=== PATIENT | female | born 1980 | race Caucasian/White ===

== ENCOUNTER 2025-01-28 11:33 | Emergency (ER) | payer OTHER, SELFPAY ==
--- NOTE | ~2025-01-28 | XR_ITS ---
Examination: XR ankle LT min 3V Clinical History: pain and swelling from fall 8 days ago Comparison: None Technique: 4 views left ankle Findings/impression: 1. Minimally displaced fracture lateral malleolus, below level of ankle mortise. 2. No additional fracture noted. 3. Ankle mortise appears maintained. Reviewed, dictated and finalized at location R.
--- OUTSIDE RECORDS SUMMARY | 2025-01-28 11:39 | XMS_ITS | Encounter Summary ---
Author Organization [facility] Address [address] [place] [address] Phone Care Team Providers Care Bee Raiser Name Role Phone María Elena Mccormick MD Primary Care Provider [phone] Stefanie Boston PT Unavailable Unavailabl Joan Levi MD Unavailable Cathy Henderson MD Unavailable [phone] Encounter Details Date Type Department Care Team (Latest Contact Info) Description 06/17/2024 Orders Only [facility] Scanning, Provider Social History Tobacco Use Types Packs/Day Years Used Date Smoking Tobacco: Never Smokeless Tobacco: Never Alcohol Use Standard Drinks/Week Comments Yes 0 (1 standard drink = 0.6 oz pur e alcohol) AUDIT-C Answer Date Recorded Q1: How often do you have a drink containing alc ohol? Monthly or less 04/18/2024 Q2: How many drinks containi ng alcohol do you have on a typical day when you are drinking? 1 or 2 04/18/2024 Q3: How often do you have si x or more drinks on one occasion? 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 Not on file Not on file documented as of this encounter Plan of Treatment Upcoming Encounters Date Type Department Care Team (Late st Contact Info) Description 05/26/2025 8:00 AM [employer] Hospital Encounter [facility] [address] [place] [address] Bobby Lopez MD [address] [facility] [address] [place] [address] 05/26/2025 8:00 AM [employer] - 05/26/2025 8:30 AM [employer] Surgery [address] [address]Bobby Murphy MD [address] [place] [address] [address] [place] [address] COLONOSCOPY Scheduled Procedures Name Priority Associated Diagnoses Date/Ti me COLONOSCOPY Encounter for screening colonoscopy 05/26/2025 8:00 AM [employer] documented as of this encounter Procedures Procedure Name Priority Date/Time Associated Diagnosis Comments SCAN - LABS 06/17/2024 documented in this encounter Results * SCAN - LABS (06/17/2024) us Provider Scanning Edited Result - Final documented in this encounter Visit Diagnoses Not on filedocumented in this encounter Care Teams Bee Raiser Relationship Specialty Start Date End Date María [place] [id number] [facility] [address] [place] [address] PCP - General 11/09/15 Stefanie Boston, PT Physical Therapist Physical Therapy 10/30/23 Joan Bond MD [address] [facility] [address] [place] [address] Medical Oncologist/Hematologis t Hematology 08/25/24 Cathy Henderson MD [address] [place] [address] Delivery Recruiter Obstetrics and Gynecology 08/25/24 documented as of this encounter
--- OUTSIDE RECORDS SUMMARY | 2025-01-28 11:39 | XMS_ITS | Clinical Summary ---
Author Organization [facility] Address [address] [facility] [address] [place] [address] Phone Care Team Providers Care Ux Design Manager Name Role Phone María Elena Mccormick MD Primary Care Provider [phone] Stefanie Boston PT Unavailable Unavailabl Joan Levi MD Unavailable Alexandria Henderson MD Unavailable Allergies No known active allergies Medications cholecalciferol (VITAMIN D-3) 2000 unit capsuleIndication s:Family history of osteoporosis Take 1 capsule (2,000 Units total) by mouth daily 1 Active buPROPion SR (WELLBUTRIN SR) 150 mg 12 hr tabletIndications :Recurrent major depressive disorder, in full remission Take 1 tablet (150 mg total) by mouth daily 90 tablet 2 4 Active Active Problems Problem Noted Date Diagnosed Date Encounter for screening colonoscopy 09/05/2024 Immunization due 08/26/2024 Colon cancer screening 08/26/2024 Assessment & Plan (08/26/2024 5:01 PM CDT): Discussed screening options - Cologuard Kit of Colonoscopy. She would like to get the Colonoscopy. [facility] will be convenient for her. 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 She received phlebotomies to treat iron overload. Most recent office visit with Hematology 07/2024. Labs stable at that time. Will follow-up for repeat labs 11/04/2024 Chronic right shoulder pain 08/21/2023 Assessment & Plan (08/21/2023 1:51 PM CDT): Onset ~ Mar 2023/Apr 2023. Possibly started following ski trip. Exam consistent with rotator cuff tendonitis. Strength relatively intact, but tear is a possibility. Recommend stretching and strengthening. She would like to try home exercises rather than PT. Handout given. If pain persists, will recommend Orthopedist referral [email or web address] Recommend ice OR heat to affected area. 20 minutes at a time, 2-3 times a day. Plantar wart of right foot 08/21/2023 Assessment & Plan (08/21/2023 1:49 PM CDT): Plantar wart vs small callus Recommend OTC Compound W. Could consider Dermatology or Podiatry for cryotherapy [email or web address] Iron excess 08/07/2023 Assessment & Plan (12/12/2023 12:03 PM CDT): TIBC low on 03/13/2022 labs UIBC low on 03/13/2022 and 03/03/2019 labs Remainder of iron panel normal on prior labs 02/2023 - TIBC 232 (normal 250-450) UIBC 69 (normal 131-425) Iron 163 (normal 27-159) Iron saturation 70 (normal 15-55) 08/07/2023 - Cr 0.91, eGFR 80 Glucose 92 mg/dL K+ 5.0 (H) H/H 14.0/43.2 MCV 98.0 (H) Iron 144 (normal 35 - 145) Ferritin 339 (normal 15 - 150) TIBC 248 (normal 250 - 400) Transferrin Saturation 58 %(normal 20 - 50%) History of low blood count as an adolescent. History of heavy menses prior to NovaSure procedure 09/2015. No known family history of hereditary hemochromatosis. Normal liver function. No anemia. Was taking MVT prior to labs in February 2023, but has stopped. No significant EtOH intake. No family history of hemochromatosis. No symptoms of hemochromatosis. Assessment & Plan (11/26/2023 5:19 PM CDT): TIBC low on 03/13/2022 labs UIBC low on 03/13/2022 and 03/03/2019 labs Remainder of iron panel normal on prior labs 02/2023 - TIBC 232 (normal 250-450) UIBC 69 (normal 131-425) Iron 163 (normal 27-159) Iron saturation 70 (normal 15-55) 08/07/2023 - Cr 0.91, eGFR 80 Glucose 92 mg/dL K+ 5.0 (H) H/H 14.0/43.2 MCV 98.0 (H) Iron 144 (normal 35 - 145) Ferritin 339 (normal 15 - 150) TIBC 248 (normal 250 - 400) Transferrin Saturation 58 %(normal 20 - 50%) History of low blood count as an adolescent. History of heavy menses prior to NovaSure procedure 09/2015. No known family history of hereditary hemochromatosis. Normal liver function. No anemia. Was taking MVT prior to labs in February, but has stopped. No significant EtOH intake. No family history of hemochromatosis. No symptoms of hemochromatosis. Iron levels improved on recent labs, but not normal. Could consider referral to [facility] at this point for genetic testing and imaging - likely US or MRI of liver. Or repeat labs in 4 months for monitoring. Her recent ferritin level was high, but iron level was normal. So I do not think that phlebotomy would be indicated at this point. She was agreeable to repeat labs in November 2023. Will plan to do this at [facility]. Assessment & Plan (08/21/2023 1:56 PM CDT): TIBC low on 03/13/2022 labs UIBC low on 03/13/2022 and 03/03/2019 labs Remainder of iron panel normal on prior labs 02/2023 - TIBC 232 (normal 250-450) UIBC 69 (normal 131-425) Iron 163 (normal 27-159) Iron saturation 70 (normal 15-55) 08/07/2023 - Cr 0.91, eGFR 80 Glucose 92 mg/dL K+ 5.0 (H) H/H 14.0/43.2 MCV 98.0 (H) Iron 144 (normal 35 - 145) Ferritin 339 (normal 15 - 150) TIBC 248 (normal 250 - 400) Transferrin Saturation 58 %(normal 20 - 50%) History of low blood count as an adolescent. History of heavy menses prior to NovaSure procedure 09/2015. No known family history of hereditary hemochromatosis. Normal liver function. No anemia. Was taking MVT prior to labs in February, but has stopped. No significant EtOH intake. No family history of hemochromatosis. No symptoms of hemochromatosis. Iron levels improved on recent labs, but not normal. Could consider referral to [facility] at this point for genetic testing and imaging - likely US or MRI of liver. Or repeat labs in 4 months for monitoring. Her recent ferritin level was high, but iron level was normal. So I do not think that phlebotomy would be indicated at this point. She was agreeable to repeat labs in November 2023. Will plan to do this at [facility]. Assessment & Plan (08/07/2023 11:37 AM CDT): TIBC 232 (normal 250-450) UIBC 69 (normal 131-425) Iron 163 (normal 27-159) Iron saturation 70 (normal 15-55) TIBC low on 03/13/2022 labs UIBC low on 03/13/2022 and 03/03/2019 labs Remainder of iron panel normal on prior labs History of low blood count as an adolescent. History of heavy menses prior to NovaSure procedure 09/2015. No known family history of hereditary hemochromatosis. Normal liver function on Feb 2023 labs. No anemia. Was taking MVT prior to labs in February, but has stopped. Elevated levels possibly due to excess iron supplementation through MVT Discussed possibility of genetic disorder causing increased iron absorption. Risk of liver adverse effects if this is the etiology and left untreated. Recommend recheck with ferritin level Family history of osteoporosis 04/05/2021 Assessment & Plan (08/26/2024 4:54 PM CDT): 11/2023 - 25(OH) Vit D 46 (N) Patient risk factors for low bone density include family history. No s/s premature menopause Broke her arm as a child, but no high risk fractures. No high risk medications or personal medical diagnoses that would contribute Never smoker Most recent labs 2015 - CBC, BMP normal. Recommend resistance training, continue MVT and Vit D supplement Assessment & Plan (04/05/2021 4:56 PM RUBBER TIRE CURER): No s/s premature menopause No personal history of fracture No high risk medications or personal medical diagnoses that would contribute Never smoker Most recent labs 2015 - CBC, BMP normal. Recommend resistance training, continue MVT and Vit D supplement Consider Vit D testing with routine annual labs at Physical Exam Palpitations 02/16/2019 Assessment & Plan (02/16/2019 1:14 PM CDT): Chronic feelings of palpitations - intermittent Classically worse with laying on right side. Now more frequent. No identifiable trigger. No OTC meds Has been stable on current dose of wellbutrin for > 2 years. Normal exam and vital signs. Last CBC 09/2015 - normal (no anemia) Sebaceous cyst 05/18/2017 Assessment & Plan (05/18/2017 4:57 PM RUBBER TIRE CURER): Currently with no fluctuance to drain. Recommend oral and topical abx Keep clean with bar soap Call if worsening. BMI 25.0-25.9,adult 05/18/2017 Assessment & Plan (08/26/2024 1:56 PM CDT): Wt Readings from Last 3 Encounters: 08/26/24 68.5 kg (151 lb) 08/03/24 67.9 kg (149 lb 9.6 oz) 06/17/24 69.2 kg (152 lb 9.6 oz) 08/21/23 - 141 lbs 08/07/23 - 141 lbs 04/05/21 - 136 lbs 02/16/19 - 139 lbs 05/18/17 - 139 lbs 06/29/15 - 142 lbs 10 lbs weight gain since last office visit Body mass index is 25.13 kg/m . Assessment & Plan (08/21/2023 1:21 PM CDT): Wt Readings from Last 3 Encounters: 08/21/23 64 kg (141 lb) 08/07/23 64 kg (141 lb) 02/25/23 62.1 kg (137 lb) 04/05/21 - 136 lbs 02/16/19 - 139 lbs 05/18/17 - 139 lbs 06/29/15 - 142 lbs Weight stable Body mass index is 23.46 kg/m . Assessment & Plan (08/07/2023 11:03 AM CDT): Wt Readings from Last 1 Encounters: 08/07/23 64 kg (141 lb) 04/05/21 - 136 lbs 02/16/19 - 139 lbs 05/18/17 - 139 lbs 06/29/15 - 142 lbs 5 lbs weight gain since last office visit discussed healthy diet, exercise and adequate sleep Body mass index is 23.46 kg/m . Assessment & Plan (04/05/2021 3:41 PM RUBBER TIRE CURER): discussed healthy diet, exercise and adequate sleep Body mass index is 24.87 kg/m . Assessment & Plan (02/16/2019 1:08 PM CDT): discussed healthy diet, exercise and adequate sleep Body mass index is 23.03 kg/m . Assessment & Plan (05/18/2017 4:56 PM RUBBER TIRE CURER): Body mass index is 22.95 kg/m . discussed healthy diet, exercise and adequate sleep Recurrent moderate major depressive disorder wit h anxiety 06/29/2015 Assessment & Plan (08/26/2024 5:00 PM CDT): Bupropion SR 150 mg daily 83% compliant based on Epic refill history. Last dispensed 04/12/2024 - 90 day supply Has a good relationship with her counselor, which is an asset. Stressors include her daughter's transition from High school to college. Having more anxiety than depression at this point. Suggested OTC magnesium glycinate to help with sleep at night. Melatonin has caused dream disturbances in the past. Discussed add'l prescription anxiolytic, but she declined. The bupropion has worked very well for her depressive symptoms, and she would like to continue her current regimen. Will let me know if symptoms worsen Assessment & Plan (08/07/2023 11:22 AM CDT): Bupropion SR 150 mg daily Last refilled 03/2021 - #90, 3 refills Takes ~ every other day or less. Doing well with current regimen, though. Assessment & Plan (04/05/2021 4:53 PM RUBBER TIRE CURER): Doing well on current Wellbutrin 150 mg daily Resolved Problems Problem Noted Date Diagnosed Date Resolved Date Hyperkalemia 11/26/2023 08/26/2024 Macrocytosis without anemia 11/26/2023 08/26/2024 Encounters Date Type Department Care Team Description 11/04/2024 11:00 AM CDT Lab [facility] [address] [place] [id number] Hemochromatosis, hereditary from Last 3 Months Immunizations Immunization Administration Dates Next Due Influenza, Unspecified 11/26/2023(Deferr ed: Patient Refused),11/25/2022(Deferred: Patient Refused),04/05/2021(Deferred: Patient Refused),11/26/2019(Deferred: Patient decision),01/25/2018(Deferred: Patient Refused),11/25/2017(Deferred: Patient decision),11/25/2016(Deferred: Patient decision) Tdap 08/26/2024 Surgical History Surgery Date Site/Laterality Comments ENDOMETRIAL ABLATION W/ NOVASURE 10/17/2015 SALPINGECTOMY 10/17/2015 Bilateral LBS for sterilization, with CHARLI CERVICAL POLYPECTOMY 04/27/2014 - 04/26/2015 BREAST LUMPECTOMY 04/27/1996 - 04/26/1997 benign breast lump Medical History Medical History Date Comments Depression Abnormal Pap smear of cervix 2018 Aty pical glandular cells - negative ECC and EMB. 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 Family History Medical History Relation Name Comments Hypertension Brother Dayne No Known Problems Daughter Atrial fibrillation Father Norman Depression Father Norman Hypertension Father Norman Pulmonary fibrosis Father Norman COD Alzheimer's disease Maternal Grandfather Abel Skin cancer Maternal Grandfather Abel Alzheimer's disease Maternal Grandmother Lali Osteoporosis Maternal Grandmother Lali Osteoporosis Maternal Great-Grandmother Depression Mother Valerie Osteoporosis Mother Valerie Stroke Paternal Grandfather Maxim Alzheimer's disease Paternal Grandmother Dayna Atrial fibrillation Paternal Grandmother Dayna No Known Problems Son Hemochromatosis Neg Hx Relation Name Status Comments Brother Dayne Daughter Alive Father Norman Maternal Grandfather Abel Maternal Grandmother Lali Maternal Great-Grandmother Mother Valerie Alive Paternal Grandfather Maxim Paternal Grandmother Dayna Son Alive Social History Tobacco Use Types Packs/Day Years Used Date Smoking Tobacco: Never Smokeless Tobacco: Never Tobacco Cessation:Counseling Given: Not Answered Alcohol Use Standard Drinks/Week Comments Yes 0 (1 standard drink = 0.6 oz pur e alcohol) AUDIT-C Answer Date Recorded Q1: How often do you have a drink containing alcohol? Never 08/26/2024 Q2: How many drinks containi ng alcohol do you have on a typical day when you are drinking? Patient does not drink Q3: How often do you have si x or more drinks on one occasion? 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 Not on file Not on file Obstetrics History Para Term AB IAB SAB Ectopic Multiple Livin g Live Births 5 2 2 0 3 0 3 0 0 2 2 Date Outcome GA Total Labor Labor/2nd/3rd Weight Sex Type Anes PTL Denice A1 A5 Name Clin Term Term SAB SAB SAB Last Filed Vital Signs Vital Sign Reading Time Taken Comments Blood Pressure 110/64 08/26/2024 1:43 PM CDT Pulse 60 08/26/2024 1:43 PM CDT Temperature 36.8 C (98.3 F) 08/03/2024 3:07 PM CDT Respiratory Rate 16 08/26/2024 1:43 PM CDT Oxygen Saturation 98% 08/03/2024 3:07 PM CDT Inhaled Oxygen Concentration - - Weight 68.5 kg (151 lb) 08/26/2024 1:43 PM CDT Height 165.1 cm (5' 5) 08/26/2024 1:43 PM CDT Body Mass Index 25.13 08/26/2024 1:43 PM CDT Plan of Treatment Upcoming Encounters Date Type Department Care Team (Late st Contact Info) Description 05/26/2025 8:00 AM RUBBER TIRE CURER Hospital Encounter [facility] [address] [place] [address] Bobby Lopez MD [address] [place] [address] [address] [place] [address] 05/26/2025 8:00 AM RUBBER TIRE CURER - 05/26/2025 8:30 AM RUBBER TIRE CURER Surgery [address] [address] Bobby Lopez MD [address] [place] [address] [address] [place] [address] COLONOSCOPY Scheduled Procedures Name Priority Associated Diagnoses Date/Ti me COLONOSCOPY Encounter for screening colonoscopy 05/26/2025 8:00 AM RUBBER TIRE CURER Health Maintenance Due Date Last Done Comments Colon Cancer Screening-Colonoscopy 1978 Hepatitis C Screening 1978 Hepatitis B Screening 1996 Covid-19 Vaccine ( season) 2024 03/27/2021, 08/13/2020, 07/23/2020 Influenza Vaccine (#1) 2024 Breast Cancer Screening-Mammogram 03/11/2025 03/11/2024, 03/06/2023, 02/12/2022, Additional history exists Depression Screening 08/26/2025 08/26/2024, 08/07/2023, 04/05/2021, Additional history exists Regular Well Visit/Exam 18-64 08/26/2025 08/26/2024, 03/02/2024, 02/25/2023, Additional history exists Cervical Cancer Screening 02/26/20282022, 02/25/2023, 02/01/2020, Additional history exists DTaP/Tdap/Td Vaccine (2 - Td or Tdap) 08/26/2034 08/26/2024 HPV Vaccines Aged Out No longer eligi ble based on patient's age to complete this topic Pneumococcal vaccine <65 Aged Out No longer eligible based on patient's age to complete this topic Procedures Procedure Name Priority Date/Time Associated Diagnosis Comments EGFR Routine 11/04/2024 11:07 AM CDT Hemochromatosis, hereditary DIFFERENTIAL AUTO Routine 11/04/2024 11: 07 AM CDT Hemochromatosis, hereditary COMPREHENSIVE METABOLIC PANEL Routine 11/04/2024 11:07 AM CDT Hemochromatosis, hereditary IRON PROFILE W/ IBC Routine 11/04/2024 1 1:07 AM CDT Hemochromatosis, hereditary FERRITIN Routine 11/04/2024 11:07 AM CDT Hemochromatosis, hereditary CBC WITH AUTO DIFFERENTIAL Routine 11/04/2024 11:07 AM CDT Hemochromatosis, hereditary SCREENING MAMMOGRAM BILATERAL W SIMÓN Schedule Routine, Read Routine (OP Routine) 03/11/2024 1:55 PM RUBBER TIRE CURER Encounter for screening mammogram for breast cancer HIGH RISK HPV DNA DETECTION WITH GENOTYPING Routine 02/25/2023 9:02 AM CDT Screening for malignant neoplasm of the cervix from Last 3 Months or Most Recently Relevant to Health Maintenance Results * eGFR (11/04/2024 11:07 AM CDT) eGFR 81 >=60 mL/min/1. 73 m2 Comment: Interpretive Data Reference Interval Normal >/= 90 mL/min/1.73m2 Mildly decreased* 60 - 89 mL/min/1.73m2 Mildly to moderately decreased 45 - 59 mL/min/1.73m2 Moderately to severely decreased 30 - 44 mL/min/1.73m2 Severely decreased 15 - 29 mL/min/1.73m2 Kidney Failure < 15 mL/min/1.73m2 *Relative to young adult level Estimated glomerular filtration rate is determined by the 2020 CKD-EPI equation recommended by the National Kidney Foundation (A Unifying Approach to GFR Estimation: Recommendations of the NKF-ASK Task Force on Reassessing the Inclusion of Race in Diagnosing Kidney Disease, JASN 2020). The CKD-EPI equation should not be used for patients with unstable renal function and has not been validated in children and those over 70. Current interpretive data was last reviewed 2021. Testing performed by: [facility] [place] [address] Blood 11/04/2024 11:0 7 AM CDT 11/04/2024 11:07 AM CDT Joan Bond MD LAB BLOOD ORDERABLES Final Resul t [facility] [id number] Department [place] [address] * Differential, auto (11/04/2024 11:07 AM CDT) Neutrophil abs 2.97 1.50 - 6.50 K/cumm Comment:Testing performed by : [facility] [place] [address] Imm gran abs 0.00 0.00 - 0.10 K/cumm [facility] Comment:Testing performed by : [facility] [place] [address] Lymphocyte abs 1.82 0.80 - 3.30 K[facility]cumm [facility]:Testing performed by : [facility] [place] [address] Monocyte abs 0.37 0.20 - 0.80 K/cumm VIKA Comment:Testing performed by : [facility] [place] [address] Eosinophil abs 0.07 0.00 - 0.50 K/cumm CERNER CH Comment:Testing performed by : [facility] [place] [address] Basophil abs 0.04 0.00 - 0.10 K/cumm CERNER CH Comment:Testing performed by : [facility] [place] [address] Neutrophil pct 56.4 % CERNER CH Comment: Interpretive Data Percent cell count reference ranges are not reported, since discordance with absolute values may lead to misinterpretation of CBC data. Current Interpretive Data was last revised on 2017. Testing performed by: [facility] [place] [id number] Imm gran pct 0.0 % CERNER CH Comment: Interpretive Data Percent cell count reference ranges are not reported, since discordance with absolute values may lead to misinterpretation of CBC data. Current Interpretive Data was last revised on 2017. Testing performed by: [facility] [place] [address] Lymphocyte pct 34.5 % CERNER CH Comment: Interpretive Data Percent cell count reference ranges are not reported, since discordance with absolute values may lead to misinterpretation of CBC data. Current Interpretive Data was last revised on 2017. Testing performed by: [facility] [place] [address] Monocyte pct 7.0 % CERNER CH Comment: Interpretive Data Percent cell count reference ranges are not reported, since discordance with absolute values may lead to misinterpretation of CBC data. Current Interpretive Data was last revised on 2017. Testing performed by: [facility] [place] [address] Eosinophil pct 1.3 % CERNER CH Comment: Interpretive Data Percent cell count reference ranges are not reported, since discordance with absolute values may lead to misinterpretation of CBC data. Current Interpretive Data was last revised on 2017. Testing performed by: [facility] [place] [address] Basophil pct 0.8 % CERNER CH Comment: Interpretive Data Percent cell count reference ranges are not reported, since discordance with absolute values may lead to misinterpretation of CBC data. Current Interpretive Data was last revised on 2017. Testing performed by: [facility] [place] [address] Blood 11/04/2024 11:0 7 AM CDT 11/04/2024 11:07 AM CDT Joan Bond MD LAB BLOOD ORDERABLES Final Resul t Performing Organization Address [facility] de Phone Number VIKA MAYO [phone] Department [place] [address] * Iron profile w/ IBC (11/04/2024 11:07 AM CDT) Pathologist [facility] Iron 132 35 - 145 mcg/dl TIBC 267 250 - 400 mcg/dL VIKA MAYO Transferrin saturation 49 20 - 50 % VIKA Blood 11/04/2024 11:0 7 AM CDT 11/04/2024 11:43 AM CDT Joan Bond MD LAB BLOOD ORDERABLES Final Resul t Performing Organization Address [facility] de Phone Number VIKA [address] [address] Department [place] [address] * CBC with auto differential (11/04/2024 11:07 AM CDT) Pathologist [facility] WBC 5.27 3.80 - 9.90 K/cumm Comment:Testing performed by : [facility] [place] [address] Hgb 14.0 11.9 - 15.5 g/dL VIKA CH Comment:Testing performed by : [facility] [place] [address] Hct 42.6 35.6 - 45.5 % CERYULY CH Comment:Testing performed by : [facility] [place] [address] Plt 177 150 - 400 K/cumm CERYULY CH Comment:Testing performed by : [facility] [place] [address] MPV 12.3 9.1 - 12.3 fL VIKA CH Comment:Testing performed by : [facility] [place] [address] RBC 4.61 3.90 - 5.20 M/cumm VIKA MAYO Comment:Testing performed by : [facility] [place] [address] MCV 92.4 81.3 - 96.4 fL VIKA MAYO Comment:Testing performed by : [facility] [place] [address] MCH 30.4 27.1 - 33.3 pg VIKA MAYO Comment:Testing performed by : [facility] [place] [address] MCHC 32.9 32.3 - 35.7 g/dL VIKA MAYO Comment:Testing performed by : [facility] [place] [address] RDW CV 13.5 11.1 - 14.9 % VIKA MAYO Comment:Testing performed by : [facility] [place] [address] RDW SD 46.3 35.7 - 48.1 fL VIKA MAYO Comment:Testing performed by : [facility] [place] [address] NRBC abs 0.00 0.00 - 0.01 K/cumm VIKA MAYO Comment:Testing performed by : [facility] [place] [address] ANC Prelim 2.97 1.50 - 6.50 K/cumm VIKA MAYO Comment: Interpretive Data The rapid ANC is a preliminary automated count and may vary from the final ANC (Neut Abs) reported in the WBC differential that follows. Current interpretive data was last revised 2024. Testing performed by: [facility] [place] [address] Blood 11/04/2024 11:0 7 AM CDT 11/04/2024 11:07 AM CDT us Joan Bond MD LAB BLOOD ORDERABLES Final Resul t VIKA MAYO [id number] [address] Antonia Bowling Department [place] [address] * Ferritin (11/04/2024 11:07 AM CDT) Ferritin 55 13 - 150 ng/mL Blood 11/04/2024 11:0 7 AM CDT 11/04/2024 11:43 AM CDT Joan Bond MD LAB BLOOD ORDERABLES Final Resul t [facility] [id number] [address] Antonia Bowling Department of Laboratories [place] [id number] * Comprehensive metabolic panel (11/04/2024 11:07 AM CDT) Sodium 139 135 - 145 mmol/L Comment:Testing performed by : [facility] [place] [address] Potassium, pl 4.5 3.3 - 4.9 mmol/L [facility] Comment:Testing performed by : [facility] [place] [address] Chloride 103 97 - 110 mmol/L [facility] Comment:Testing performed by : [facility] [place] [address] CO2 24 22 - 32 mmol/L [facility] Comment:Testing performed by : [facility] [place] [address] Anion gap 12 2 - 15 mmol/L [facility] by : [facility] [place] [address] BUN 15 6 - 25 mg/dL [facility] Comment:Testing performed by : [facility] [place] [address] Creatinine 0.89 0.60 - 1.10 mg/dL [facility] Comment:Testing performed by : [facility] [place] [address] Glucose 100 70 - 199 mg/dL [facility] Comment: Interpretive Data Fasting glucose >/= 126 mg/dl is diagnostic for diabetes. Fasting is defined as no caloric intake for at least 8 hours. Fasting glucose between 100 mg/dl to 125 mg/dl is diagnostic of prediabetes. In a patient with classic symptoms of hyperglycemia or hyperglycemic crisis, a random glucose >/= 200 mg/dl is diagnostic for diabetes. In the absence of unequivocal hyperglycemia, results should be confirmed by repeat testing. The classification and Diagnosis of Diabetes Diabetes Care 2022; 46: S19-S40. Current interpretive data was last revised 2022. Testing performed by: [facility] [place] [address] Calcium 9.5 8.5 - 10.3 mg/dL [facility] Comment:Testing performed by : [facility] [place] [address] Bilirubin, total 0.5 0.1 - 1.2 mg/dL [facility] Comment:Testing performed by : [facility] [place] [address] Protein, pl 7.4 6.5 - 8.5 g/dL [facility] Comment:Testing performed by : [facility] [place] [address] Albumin 4.5 3.5 - 5.0 g/dL [facility] Comment:Testing performed by : [facility] [place] [address] Alk phos 71 40 - 130 Units/L [facility] Comment:Testing performed by : [facility] [place] [address] ALT 34 7 - 45 Units/L [facility] Comment:Testing performed by : [facility] [place] [address] AST 31 10 - 45 Units/L [facility] Comment:Testing performed by : [place] [address] Blood 11/04/2024 11:0 7 AM CDT 11/04/2024 11:07 AM CDT Joan Bond MD LAB BLOOD ORDERABLES Final Resul t [facility] [id number] [address] Antonia Bowling Department [place] [address] * Screening Mammogram Bilateral W Simón (03/11/2024 1:55 PM RUBBER TIRE CURER) Anatomical Region Laterality Modality Breast Bilateral Mammography 03/14/2024 11:0 6 AM RUBBER TIRE CURER Impressions 03/14/2024 11:06 AM RUBBER TIRE CURER There is no mammographic evidence of malignancy. A 1 year screening mammogram is recommended. BI-RADS: 1 - Negative. The patient has been or will be contacted. The patient will be entered into a reminder system with a target due date of 1 year for her next mammogram. Electronically signed by: Rachel Escoto M.D. Narrative 03/14/2024 11:06 AM RUBBER TIRE CURER EXAMINATION: SCREENING MAMMOGRAM BILATERAL W SIMÓN ORDERING HEALTHCARE PROVIDER: ALEXANDRIA HENDERSON HISTORY: Routine screening mammography. COMPARISON: 03/06/2023, 02/12/2022, 02/06/2021, 02/01/2020, 01/26/2019 TECHNIQUE: CC and MLO views of the bilateral breasts were obtained with digital technique using breast tomosynthesis with C view. Computer aided detection was utilized. FINDINGS: DENSITY: The breasts are heterogeneously dense, which may obscure small masses. BREASTS: There are no suspicious masses, suspicious calcifications, or other suspicious findings in either breast. There has been no suspicious interval change. Alexandria Henderson MD IMG MAMMO PROCEDURES Final Result * High Risk HPV DNA Detection with Genotyping (Molecular component) (02/25/2023 9:02 AM CDT) HPV HR 16 Not Detected Not Detected [facility] Comment:Testing performed by : [facility], [address] [place]., [address] HPV HR 18 Not Detected Not Detected [facility] Comment:Testing performed by : [facility], [address] [place]., [address] HPV HR Non 16/18 Not Detected Not Detected [facility] Comment: Interpretive Data Nucleic acid amplification for detection of high-risk Human Papilloma virus (HPV) is performed by the Raina Tsering 6800 HPV test. This assay specifically detects HPV-16 and HPV-18 genotypes. The following HPV genotypes are detected as high-risk HPV: HPV-31, 33, 35, ,39, 45, 51, 52, 56, 58, 59, 66, and 68. This assay has been approved by the [place] Food and Drug Administration for detection of HPV in cervical specimens collected by a physician using an endocervical brush/spatula or cervical broom and placed in the ThinPrep Pap Test PreservCyt collection containers. The performance characteristics of this test have been verified by the [facility] Molecular Infectious Disease laboratory. Correlate with separately reported cytology results, as applicable. Interpretive data last revised 22 Testing performed by: [facility], [address] [place]., [address] Endocervical 02/25/2023 9:02 AM CDT 02/26/2023 12:38 PM CDT Narrative [facility] - 02/27/2023 4:30 AM CDT Clinical history and diagnosis->DX Z12.4 2018- ATYPICAL GLANDULAR CELLS. Testing type->Screening Last menstrual period (date if known)->02/03/23 Previous negative PAP?->Yes Alexandria Henderson MD LAB BODY FLUIDS AND S TOOLS ORDERABLES Final Result [facility] [id number] [address] Antonia Department [place] [address] from Last 3 Months or Most Recently Relevant to Health Maintenance Insurance [facility] PPO [place] [facility] HMO/PPO Address[facility] [id number] [place] [address] [facility] HMO/PPO Address: [facility] [address] [place] [address] Care Teams Ux Design Manager Relationship Specialty Start Date End Date María [place] [id number] [place] [address] PCP - General 11/09/15 Stefanie Boston, PT Physical Therapist Physical Therapy 10/30/23 Joan Bond MD [address] [facility] [address] [place] [address] Medical Oncologist/Hematologis t Hematology 08/25/24 Alexandria Henderson MD [address] [id number] [employer] Obstetrics and Gynecology 08/25/24
[2025-01-28 11:41] VITALS: BP 137/63; PULSE 74; RESP 16; TEMP 36.8; O2SAT 99
--- NOTE | 2025-01-28 11:52 | ED_ITS ---
HPI - Extremity Injury (Lower) General Chief Complaint: Extremity Injury, Lower Stated Complaint: left ankle injury Time Seen by Provider: 01/28/25 11:52 Source: patient and RN notes reviewed Mode of arrival: ambulatory Limitations: no limitations History of Present Illness HPI Narrative: 44-year-old female Presents Express Care complaining of injury to left ankle proximally 8 days ago. Patient reports she fell 8 days ago when she was out for run she stepped on a lawn and fell injuring her left ankle. Patient reports also having bruising to her right knee but denies any pain. Patient has hitting her head, loss of consciousness, neck pain, back pain, or any other injuries. Patient has been wearing a walking boot to her left ankle. Patient reports pain and swelling to the medial side of her ankle. Patient has been initially using crutches and switched to a walking boot however stopping pain when she bears weight on her left ankle. Patient's has been taking Tylenol or ibuprofen with relief. Patient denies any numbness, tingling or any other injuries. Patient denies any significant past medical history. Related Data Allergies Allergy/AdvReac Type Severity Reaction Status Date / Time No Known Allergies Allergy Verified 01/28/25 11:46 Review of Systems Review of Systems: CONSTITUTIONAL: Denies fever, chills, or sweats. EYES: Denies visual changes, redness, or discharge. ENT: Denies rhinorrhea, congestion, sore throat, or otalgia. CARDIOVASCULAR: Denies chest pain, palpitations, or edema. RESPIRATORY: Denies cough or dyspnea. GASTROINTESTINAL: Denies abdominal pain, nausea, vomiting, or diarrhea. GENITOURINARY: Denies dysuria or hematuria. SKIN: Denies rash, wound, or itching. MUSCULOSKELETAL: Denies back pain, joint pain, or myalgia. Positive for left ankle injury and swelling NEUROLOGIC: Denies headache, numbness, or weakness. PSYCHIATRIC: Denies anxiety or depression. All other systems reviewed are negative, except as documented in HPI. PMFSH Comments At the time of my signature, I reviewed and agree with the nursing past medical, surgical, social, and family history. There is no relevant family history pertinent to the patient complaint. Exam Narrative: GENERAL: This is a well-nourished, well-developed adult, in no apparent distress. They are non ill-appearing, nontoxic appearing. HEAD: normocephalic, atraumatic. EYES: Sclera clear/white. Vision is grossly intact. Conjunctiva normal. Extraocular movement intact. EARS: External ears normal Hearing grossly intact. NOSE: External nose normal THROAT: Mucous membranes moist NECK: Neck supple CARDIOVASCULAR: Regular rate and rhythm RESPIRATORY: Respiratory rate normal, respiratory effort nonlabored, no respiratory distress NEURO: awake, alert, and oriented to person, place and time. There were no obvious focal neurologic abnormalities. EXTREMITIES: Left ankle: No obvious deformity, or redness. Patient has bruising and swelling throughout her left foot/ankle. Mild pain through full range of motion. No tenderness throughout the foot. There is lateral tenderness to palpation to left ankle. Capillary refill less than 3 seconds. Left pedal Pulse 2 +palpable. Normal sensation. Neurovascular status intact distal injury. Negative De Anda's test test. Patient is able to wiggle her toes. Right knee: Mild bruising and abrasions an appeal healing to right knee. No bony tenderness. No obvious deformity, redness, or swelling. No valgus or varus laxity. Neurovascular status intact distal injury. Capillary refill less than 2 seconds. Normal sensation. BACK: Nontender without deformity. Course Course Emergency Course: Portions of this record may have been created with voice recognition software Level of Care: Express Care Visit Vital Signs Vital signs: Vital Signs Temperature 98.3 F 01/28/25 11:41 Pulse Rate 74 01/28/25 11:41 Respiratory Rate 16 01/28/25 11:41 Blood Pressure 137/63 01/28/25 11:41 Pulse Oximetry 99 01/28/25 11:41 Oxygen Delivery Room Air 01/28/25 11:41 Temperature 98.3 F 01/28/25 11:41 Pulse Rate 74 01/28/25 11:41 Respiratory Rate 16 01/28/25 11:41 Blood Pressure 137/63 01/28/25 11:41 Pulse Oximetry 99 01/28/25 11:41 Oxygen Delivery Room Air 01/28/25 11:41 Reviewed Procedures Orthopedic Splinting/Casting Injury #1: Splinting/Casting Date: 01/28/25 Splinting/Casting Time: 12:30 Side: left Lower Extremity Injury Location: ankle Splint: prefabricated OCL: stirrup (With short-leg) Pre-Procedure Neuro Vascular Exam: normal Post-Procedure Neuro Vascular Exam: normal Additional Comments: Patient tolerated procedure well, patient has crutches. MDM - Extremity Injury (Lower) MDM Narrative Medical decision making narrative: X-ray left ankle shows a minimally displaced lateral malleolus fracture. Patient placed posterior short-leg with stirrup splint. Patient to be nonweightbearing, patient states urine he has crutches at home. Will refer patient orthopedist. Discussed physical exam findings. Advised supportive measures and signs/symptoms to go to the ER. Pt is appropriate for outpt treatment and f/u. Differential Diagnosis Differential diagnosis: Likely ankle sprain and strain, ankle fracture and other (Foot fracture) Imaging Data Radiologist's impression: Findings/impression: 1. Minimally displaced fracture lateral malleolus, below level of ankle mortise. 2. No additional fracture noted. 3. Ankle mortise appears maintained. Critical Care Time Critical Care Time Critical Care Time: No Discharge Plan Discharge Clinical Impression: Ankle fracture, lateral malleolus, closed Patient Disposition: Home Condition: Stable Instructions: Ankle Fracture (ED) Additional Instructions: X-ray of your left ankle reveals a lateral malleolus fracture. Wear the splint at all times, keep it dry and cover while showering. Do not bear weight on your left ankle. Rest and elevate the leg; You may take ibuprofen 600 mg to 800 mg every 6-8 hours. Do not exceed more than 800 mg of ibuprofen per dose. Do not exceed more than 3200 mg ibuprofen in a day. You may take up to 1000 mg Tylenol every 6-8 hours. Do not exceed 1000 mg per dose, do exceed more than 4000 mg of Tylenol in a day. Follow up with a orthopedist in 3-5 days. Patient Language: Puerto Rican Follow-up/Referrals: Jace,MD María Elena [Primary Care Provider, Unknown] Yony Ramon MD [Physician, Orthopedics] - 3 Days Clinical Impression: Ankle fracture, lateral malleolus, closed Stand Alone Forms: Work/School Release IP Time of Disposition: 12:25
== END 2025-01-28 12:57 | disposition home or self-care (01) ==
PROVIDERS: PCP Family Medicine
DX: S82.62XA Displaced fracture of lateral malleolus of left fibula, initial encounter for closed fracture (principal); W19.XXXA Unspecified fall, initial encounter; Y93.02 Activity, running
CPT/HCPCS: 29515; 73610; 99204; G0463